=== PATIENT | male | born 1995 | race Caucasian/White ===

== ENCOUNTER 2017-05-11 18:19 | Emergency (ER) | payer OTHER ==
[2017-05-11] MEDS ORDERED: CYCLOBENZAPRINE 10MG STARTER 3 TAB BTL PO STA (18:52)
[2017-05-11] MEDS ORDERED: IBUPROFEN 600 MG TAB PO STA (18:52)
--- NOTE | 2017-05-11 19:05 | ED ---
General Adult HPI - General Chief complaint: Neck Pain/Injury Stated complaint: back injury-[facility] Time Seen by Provider: 05/11/17 18:32 Source: patient, RN notes reviewed Mode of arrival: ambulatory Limitations: no limitations - History of Present Illness Initial comments: This is a 21-year-old male who presents to the emergency department with chief complaint of low back injury. Patient states that an hour and a half prior to arrival he was working for the [facility] [employer]. 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 Patient states that he lost his balance but was able to catch himself by falling back against a wall. He states that he had a twisting motion when he fell backwards. Patient states that pain is localized to left lumbar region and is made worse with rotation. 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 Patient denies any other injury or trauma. Denies fever, chills, chest pain, shortness of breath, abdominal pain, nausea or vomiting, constipation or diarrhea, dysuria or hematuria, numbness or tingling, headache or vision changes. - Related Data Allergies Allergy/AdvReac Type Severity Reaction Status Date / Time No Known Allergies Allergy Verified 05/11/17 18:25 Review of Systems ROS Statement: Those systems with pertinent positive or pertinent negative responses have been documented in the HPI. ROS Other: All systems not noted in ROS Statement are negative. Past Medical History Past Medical History: No Reported History History of Any Multi-Drug Resistant Organisms: None Reported Past Surgical History: No Surgical Hx Reported Past Psychological History: No Psychological Hx Reported Smoking Status: Never smoker Past Alcohol Use History: None Reported Past Drug Use History: None Reported General Exam - General Exam Comments Initial Comments: General: Awake and alert, well-developed; in no apparent distress. HEENT: Head atraumatic, normocephalic. Pupils are equal, round and reactive to light. Extraocular movements intact. Neck: Supple. Normal ROM. Back: No obvious deformities, erythema or swelling. There is tenderness to palpation of left paraspinal muscles. No bony point vertebral tenderness. No SI joint tenderness. Sensation is intact. Normal active and passive range of motion of spine, however patient reports pain with rotation. Cardiovascular: Regular rate and rhythm. No murmurs, rubs or gallops. Chest symmetrical. Respiratory: Lungs clear to auscultation bilaterally. No wheezes, rales or rhonchi. Normal respiratory effort with no use of accessory muscles. Skin: [place], warm and dry without rashes or lesions. Neurological: Alert and oriented x3. CN II-XII grossly intact. Speech is fluent and answers are appropriate. No focal neuro deficits. Psychiatric: Normal mood and affect. No overt signs of depression or anxiety noted. Limitations: no limitations Course Vital Signs 05/11/17 18:22 Temperature 97.6 F Pulse Rate 82 Respiratory 18 Rate Blood Pressure 141/71 O2 Sat by Pulse 99 Oximetry Medical Decision Making - Medical Decision Making This is a 21-year-old male who presents for evaluation of low back injury. 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 Lumbar spine x-ray showed no acute abnormalities. Patient given ibuprofen while in the emergency department. He is feeling well and is in no acute distress. He denies numbness or tingling or loss of bladder or bowel function. Patient will be discharged home. This case was discussed with attending physician, Dr. Riley who also evaluated the patient. He is in agreement with the plan and voiced understanding. all questions answered. - Radiology Data Radiology results: report reviewed X-ray lumbar spine findings: Lumbar vertebrae have normal spacing alignment. Posterior elements are intact. There is no sign of compression fracture. Sacroiliac joints appear normal. Impression: Negative lumbar spine exam Disposition Clinical Impression: Strain of lumbar paraspinal muscle Disposition: HOME SELF-CARE Condition: Good Instructions: Low Back Strain (ED), Cyclobenzaprine (By mouth) Additional Instructions: May take ibuprofen 600 mg every 6 hours as needed for pain and inflammation. Please follow up with primary care provider within 1-2 days. Return to emergency department if symptoms should worsen or any concerns arise. Referrals: Nonstaff,Physician [Primary Care Provider] - 1-2 days Time of Disposition: 19:48
--- NOTE | 2017-05-11 19:22 | XR ---
EXAMINATION TYPE: XR lumbar spine 2 or 3V DATE OF EXAM: 05/11/2017 COMPARISON: NONE HISTORY: Injury pain TECHNIQUE: 3 views FINDINGS: Lumbar vertebra have normal spacing and alignment. Posterior elements are intact. There is no sign of compression fracture. Sacroiliac joints appear normal. IMPRESSION: Negative lumbar spine exam
[2017-05-11 19:56] VITALS: BP 127/68; PULSE 68; RESP 16; TEMP 98.3
== END 2017-05-11 19:50 | disposition home or self-care (01) ==
LOC: EC 18:19
DX: S39.012A Strain of muscle, fascia and tendon of lower back, initial encounter (principal); X50.0XXA Overexertion from strenuous movement or load, initial encounter; Y99.0 Civilian activity done for income or pay
CPT/HCPCS: 72100; 99283